=== PATIENT | female | born 1930 | race Caucasian/White ===

== ENCOUNTER 2018-03-18 00:03 | Emergency (ER) | payer MEDICARE, OTHER ==
--- NOTE | 2018-03-18 00:57 | C.PDOC ---
History Of Present Illness 87 year old female patient presents to the ER with c/o right foot pain. Patient reports she twisted her right foot at home. Patient notes she can ambulate and bear weight with a cane. Time Seen by Provider: 03/18/18 00:34 Chief Complaint (Nursing): Lower Extremity Problem/Injury History Per: Patient History/Exam Limitations: no limitations Onset/Duration Of Symptoms: Hrs Current Symptoms Are (Timing): Still Present - Ankle/Foot Description Of Injury: Twisted Past Medical History Reviewed: Historical Data, Nursing Documentation, Vital Signs Vital Signs: Last Vital Signs Temp 98.2 F 03/18/18 00:13 Pulse 78 03/18/18 00:13 Resp 20 03/18/18 00:13 BP 120/70 03/18/18 00:13 Pulse Ox 97 03/18/18 00:13 - Medical History PMH: HTN, Hypercholesterolemia Family History: States: No Known Family Hx - Social History Hx Tobacco Use: No Hx Alcohol Use: No Hx Substance Use: No - Immunization History Hx Tetanus Toxoid Vaccination: No Hx Influenza Vaccination: No Hx Pneumococcal Vaccination: No Review Of Systems Musculoskeletal: Positive for: Foot Pain, Other (twisted right ankle) Physical Exam - Physical Exam Appears: Non-toxic, No Acute Distress, Other (mildly in pain) Skin: Normal Color, Warm, Dry Head: Atraumatic, Normacephalic Eye(s): bilateral: Normal Inspection, PERRL, EOMI Neck: Normal ROM, Supple Chest: Symmetrical, No Deformity Cardiovascular: Rhythm Regular Respiratory: Normal Breath Sounds Gastrointestinal/Abdominal: Soft, No Tenderness Back: No CVA Tenderness Extremity: Normal ROM (10 digits), Tenderness (tenderness right lateral ankle; ecchymosis to right lateral foot.), No Pedal Edema, No Calf Tenderness, Capillary Refill (<2 sec) Pulses: Left Dorsalis Pedis: Normal, Right Dorsalis Pedis: Normal Neurological/Psych: Oriented x3, Normal Speech ED Course And Treatment O2 Sat by Pulse Oximetry: 97 (RA) Pulse Ox Interpretation: Normal - Other Rad right foot X-Ray: Interpreted by Me, Viewed By Me Interpretation: no dislocation; no fracture right ankle X-Ray: Interpreted by Me, Viewed By Me Interpretation: no dislocation; no fracture Progress Note: Impression: right foot pain. plans: -- Tylenol. -- XR right ankle. -- Xr right foot. Reassess: On reassessment, patient is resting comfortably, and is in no acute distress. Patient was given RUTH wrap with orthro shoe. Patient was instructed to follow up with podiatry in 1-2 days for further evaluation. Disposition Counseled Patient/Family Regarding: Studies Performed, Diagnosis, Need For Followup, Rx Given - Disposition Referrals: Podiatry Clinic [Outside] Disposition: HOME/ ROUTINE Disposition Time: 02:00 Condition: STABLE Additional Instructions: FOLLOW UP WITH [facility] WITHIN 1 WEEK USE PAIN MEDICATION NEEDED RETURN TO EMERGENCY ROOM IF SYMPTOMS WORSEN SEGUIRSE CON EL PODIATRISTA EN [place]NTHIA SEMANA UTILICE MEDICAMENTOS PARA EL DOLOR SEGN LO NECESARIO VUELVA A LA NOREEN DE EMERGENCIA SI LOS SNTOMAS SE PURCELL PROBLEMAS Prescriptions: Naproxen 375 mg PO BID PRN #20 tablet PRN Reason: pain Instructions: Ankle Sprain (DC), Foot Sprain (DC) Forms: [facility] (Greek) Print Language: FRISIAN - POA Present On Arrival: Falls Or Trauma - Clinical Impression Clinical Impression: Right foot sprain, Right ankle sprain - Scribe Statement The provider has reviewed the documentation as recorded by the Scribemma Rincon Do Provider Attestation: All medical record entries made by the Scribe were at my direction and personally dictated by me. I have reviewed the chart and agree that the record accurately reflects my personal performance of the history, physical exam, medical decision making, and the department course for this patient. I have also personally directed, reviewed, and agree with the discharge instructions and disposition.
[2018-03-18 01:59] VITALS: BP 119/67; PULSE 67; RESP 18; TEMP 98.1
[2018-03-18 02:00] VITALS: O2SAT 97
--- NOTE | 2018-03-18 10:03 | RAD ---
PROCEDURE: Right Ankle Radiographs. HISTORY: right ankle pain after injury r/o fx COMPARISON: None FINDINGS: BONES: No acute displaced fracture. Small calcaneal enthesophyte. JOINTS: No dislocation. SOFT TISSUES: Mild soft tissue swelling. Vascular calcifications. No evidence of radiopaque foreign body. OTHER FINDINGS: None. IMPRESSION: Mild soft tissue swelling. No acute displaced fracture, dislocation, or significant joint effusion identified. If symptoms persist or if there is clinical concern, x-ray follow-up in 7-10 days should be considered.
--- NOTE | 2018-03-18 10:08 | RAD ---
PROCEDURE: Right foot Radiographs. HISTORY: right foot injury r/o fx COMPARISON: None available. FINDINGS: BONES: No acute displaced fracture. Osseous demineralization. Degenerative changes. JOINTS: No dislocation. SOFT TISSUES: Soft tissue swelling. Vascular calcification. No evidence of radiopaque foreign body. OTHER FINDINGS: None. IMPRESSION: Soft tissue swelling. Degenerative changes. Osseous demineralization. No acute displaced fracture identified. If symptoms persist or if there is continued clinical concern, x-ray follow-up in 7-10 days should be considered.
== END 2018-03-18 02:07 | disposition home or self-care (01) ==
LOC: C.ER 00:03
DX: S93.601A Unspecified sprain of right foot, initial encounter (principal); S93.401A Sprain of unspecified ligament of right ankle, initial encounter; X50.9XXA Other and unspecified overexertion or strenuous movements or postures, initial encounter

== ENCOUNTER 2018-05-08 18:49 | Emergency (ER) | payer MEDICARE, OTHER ==
[2018-05-08 19:07] VITALS: O2SAT 97
--- NOTE | 2018-05-08 19:56 | C.PDOC ---
History Of Present Illness 88 year old female with a history of hypertension, hypothyroidism, and osteoporosis presents to the ED for evaluation of anxiety and panic attacks that began 4 days ago. The patient reports feeling nervous, sensation of doom, and sh aking that began 4 days ago, symptoms persisted throughout the weekend and today prompting ED visit. She denies history of acute stressors, suicidal ideations, homicidal ideations, changes in medications, auditory or visual hallucinations, and any other associated symptoms. PMD: Dr. Scarlett Cam. Surgical Hx: cataracts surgery, retina surgery, and right knee replacement. Social Hx: lives alone. (-) drug use. (-) alcohol use. (-) tobacco use. Time Seen by Provider: 05/08/18 19:22 Chief Complaint (Nursing): Anxiety History Per: Patient History/Exam Limitations: no limitations Onset/Duration Of Symptoms: Days Current Symptoms Are (Timing): Still Present Modifying Factor(s): None Associated Symptoms: Anxiety Recent travel outside of the [place]: No Past Medical History Reviewed: Historical Data, Nursing Documentation, Vital Signs Vital Signs: Last Vital Signs Temp 98.4 F 05/08/18 18:59 Pulse 79 05/08/18 18:59 Resp 20 05/08/18 18:59 BP 128/78 05/08/18 18:59 Pulse Ox 97 05/08/18 18:59 - Medical History PMH: HTN, Hypercholesterolemia, Hypothyroidism Family History: States: Unknown Family Hx - Social History Hx Tobacco Use: No Hx Alcohol Use: No Hx Substance Use: No - Immunization History Hx Tetanus Toxoid Vaccination: No Hx Influenza Vaccination: No Hx Pneumococcal Vaccination: No Review Of Systems Except As Marked, All Systems Reviewed And Found Negative. (as per HPI.) Psych: Positive for: Anxiety. Negative for: Suicidal ideation, Other ((-) acute stressors. (-) homicidal ideations. (-) auditory or visual hallucinations.) Physical Exam - Physical Exam Appears: Non-toxic, No Acute Distress, Other (anxious mood and affect.) Skin: Warm, Dry Head: Atraumatic, Normacephalic Eye(s): bilateral: PERRL, EOMI Oral Mucosa: Moist Lips: Normal Appearing Throat: No Erythema, No Exudate Neck: Normal ROM, Trachea Midline Lymphatic: No Adenopathy Chest: Symmetrical Cardiovascular: Rhythm Regular, No Murmur Respiratory: Normal Breath Sounds, No Accessory Muscle Use Gastrointestinal/Abdominal: Soft, No Tenderness Back: Normal Inspection, No Decreased ROM Extremity: Normal ROM, No Deformity Neurological/Psych: Oriented x3, Normal Speech, Normal Motor, Normal Sensation ED Course And Treatment - Laboratory Results Result Diagrams: 05/08/18 20:11 05/08/18 20:11 ECG Rhythm: Sinus Rhythm Interpretation Of ECG: Normal QRS. Normal ST segments Rate From EC O2 Sat by Pulse Oximetry: 97 (RA) Pulse Ox Interpretation: Normal - CT Scan/US CT Head CT/US Interpretation: FINDINGS: BRAIN. Chronic periventricular and subcortical microvascular disease is seen. VENTRICLES: There is generalized parenchymal atrophy noted as demonstrated by symmetrical dilatation of ventricles and sulci. ORBITS: The orbits are unremarkable. SINUSES AND MASTOIDS: The paranasal sinuses and mastoid air cells are clear. BONES: No fracture. SOFT TISSUES: Unremarkable. MISCELLANEOUS: No acute intracranial pathology. IMPRESSION: 1. There is generalized parenchymal atrophy noted as demonstrated by symmetrical dilatation of ventricles and sulci. 2. Chronic periventricular and subcortical microvascular disease is seen. 3. No acute intracranial pathology. Medical Decision Making Medical Decision Making: Impression: acute anxiousness. Plan: --CT Head w/o contrast --EKG --Blood sent. Differentials include but are not limited to: thyroid disorder, electrolyte abnormality, intracranial mass, and anxiety. CT head negative Labs demonstrate no emergently significant abnormalities. DW pt findings. Offered ER crisis evaluation and declined. Pt to followup with mental health services as outpatient. Disposition Counseled Patient/Family Regarding: Studies Performed, Diagnosis, Need For Followup - Disposition Referrals: Community [facility] [Outside] ([facility]) Disposition: HOME/ ROUTINE Disposition Time: 22:46 Condition: STABLE Instructions: Anxiety, Adult (DC) Print Language: GIBRALTARIAN - Clinical Impression Clinical Impression: Anxiety - Scribe Statement The provider has reviewed the documentation as recorded by the Scribe (Vita Hdz) Provider Attestation: All medical record entries made by the Scribe were at my direction and personally dictated by me. I have reviewed the chart and agree that the record accurately reflects my personal performance of the history, physical exam, medical decision making, and the department course for this patient. I have also personally directed, reviewed, and agree with the discharge instructions and disposition.
[2018-05-08 20:14] LABS: BASO % 0.4 % (0.0-2.0); EOS # 0.9 K/uL (0.0-0.7); EOS % 8.9 % (0.0-4.0); HEMOGLOBIN 12.3 g/dL (11.0-16.0); LYMPH # 2.7 K/uL (1.0-4.3); LYMPH % 25.8 % (20.0-40.0); MEAN CELL VOLUME 94.5 fL (81.0-99.0); MEAN CORPUSCULAR HEMOGLOBIN 31.6 pg (27.0-31.0); MEAN CORPUSCULAR HGB CONC 33.4 g/dL (33.0-37.0); MONO # 0.6 K/uL (0.0-0.8); MONO % 6.1 % (0.0-10.0); NEUT # 6.1 K/uL (1.8-7.0); NEUT % 58.8 % (50.0-75.0); RBC 3.88 Mil/uL (3.80-5.20); RED CELL DISTRIBUTION WIDTH 13.3 % (11.5-14.5); WHITE BLOOD COUNT 10.4 K/uL (4.8-10.8)
[2018-05-08 20:34] LABS: ALB/GLOB RATIO 1.4 (1.0-2.1); ALBUMIN 4.8 g/dL (3.5-5.0); CALCIUM 10.2 mg/dl (8.6-10.4)
[2018-05-08 20:51] LABS: T4 8.96 ug/dL (5.5-11.0)
[2018-05-08 21:05] LABS: T3 1.75 nmol/L (1.49-2.60)
[2018-05-08 21:40] LABS: SQUAMOUS EPITHIAL < 1 /hpf (0-5); URINE BILIRUBIN NEGATIVE (NEGATIVE); URINE BLOOD NEGATIVE (NEGATIVE); URINE CLARITY Clear (Clear); URINE COLOR Straw (YELLOW); URINE GLUCOSE (UA) NORMAL (Normal); URINE LEUKOCYTE ESTERASE NEG Leu/uL (Negative); URINE PROTEIN NEGATIVE (NEGATIVE); URINE UROBILINOGEN NORMAL mg/dL (0.2-1.0)
[2018-05-08 23:01] VITALS: BP 149/76; PULSE 68; RESP 18; TEMP 98.1
--- NOTE | 2018-05-09 08:55 | CT ---
Date of service: 05/08/2018 PROCEDURE: CT HEAD WITHOUT CONTRAST. HISTORY: acute personality change COMPARISON: None available. TECHNIQUE: Axial computed tomography images were obtained through the head/brain without intravenous contrast. Radiation dose: Total exam DLP = 1008.57 mGy-cm. This CT exam was performed using one or more of the following dose reduction techniques: Automated exposure control, adjustment of the mA and/or kV according to patient size, and/or use of iterative reconstruction technique. FINDINGS: HEMORRHAGE: No intracranial hemorrhage. BRAIN: No mass effect or edema. Scattered focal lucencies in the subcortical and periventricular white matter suggestive for chronic microvascular ischemic change. Diffuse generalized parenchymal atrophy. Left caudate head lacunar infarct. VENTRICLES: Unremarkable. No hydrocephalus. CALVARIUM: Unremarkable. PARANASAL SINUSES: Unremarkable as visualized. No significant inflammatory changes. MASTOID AIR CELLS: Unremarkable as visualized. No inflammatory changes. OTHER FINDINGS: Intracranial arterial calcifications. IMPRESSION: Diffuse generalized parenchymal atrophy. Chronic microvascular ischemic changes. If symptoms persists, consider correlation with MRI. A preliminary report was generated at 8:40 p.m. on 05/08/[address] Naveed Heck from [facility].
--- NOTE | 2018-05-09 11:47 | CARD ---
APPROVED REPORT Date of service: 05/08/2018 EKG Measurement Heart [id number] <Conclusion> Normal sinus rhythm Normal ECG
== END 2018-05-08 23:05 | disposition home or self-care (01) ==
LOC: C.ER 18:49
DX: F41.9 Anxiety disorder, unspecified (principal); I10 Essential (primary) hypertension; E78.00 Pure hypercholesterolemia, unspecified; E03.9 Hypothyroidism, unspecified